=== PATIENT | male | born 1950 | race Caucasian/White ===

== ENCOUNTER 2022-06-02 04:15 | Day surgery (SDC) | payer OTHER ==
[2022-05-31 15:55] VITALS: BMI 28.5
[2022-06-02 10:51] VITALS: TEMP 98
[2022-06-02 12:54] VITALS: BP 125/81; PULSE 80; RESP 20
== END 2022-06-02 10:25 | disposition home or self-care (01) ==
LOC: JASU-ENDO 04:15
PROVIDERS: ATTEND Internal Medicine Gastroenterology
PROC: 0DJD8ZZ Inspection of Lower Intestinal Tract, Via Natural or Artificial Opening Endoscopic (ICD-10-PCS; principal; 2022-06-02 09:00)
DX: Z12.11 Encounter for screening for malignant neoplasm of colon (principal); K57.30 Diverticulosis of large intestine without perforation or abscess without bleeding; K64.8 Other hemorrhoids; Z86.010 Personal history of colon polyps